=== PATIENT | female | born 1980 | race Caucasian/White ===

== ENCOUNTER 2017-08-11 14:49 | Outpatient (CLI) | payer BC | END 2017-08-11 14:50 | disposition home or self-care (01) | LOC: BUREKG 14:49 | PROVIDERS: ATTEND Physician Assistant | DX: I49.8 Other specified cardiac arrhythmias (principal) | CPT/HCPCS: 93005; 93010 ==

== ENCOUNTER 2020-08-25 10:32 | Outpatient (CLI) | payer OTHER ==
--- NOTE | 2020-08-25 16:43 | RAD ---
LEFT CLAVICLE TWO VIEWS: 08/25/20 No fracture or bony abnormality was seen. The AC joint is normal in width. IMPRESSION: No acute findings. POS: HOME
== END 2020-08-25 10:33 | disposition home or self-care (01) ==
LOC: BURRAD 10:32
PROVIDERS: ATTEND Physician Assistant
DX: M89.8X1 Other specified disorders of bone, shoulder (principal)